=== PATIENT | male | born 1995 | race African-American/Black ===

== ENCOUNTER 2018-08-16 17:15 | Emergency (ER) | payer OTHER ==
[~2018-08-16] VITALS: Ht 182.9 cm; Wt 70.3 kg
== END 2018-08-16 20:15 | disposition home or self-care (01) ==
LOC: ER 17:15
DX: S60.052A Contusion of left little finger without damage to nail, initial encounter (principal); W22.8XXA Striking against or struck by other objects, initial encounter; Y93.67 Activity, basketball; Y92.89 Other specified places as the place of occurrence of the external cause; Y99.8 Other external cause status

== ENCOUNTER 2021-10-08 21:32 | Emergency (ER) | payer OTHER ==
[~2021-10-08] VITALS: Ht 182.9 cm; Wt 72.6 kg
[2021-10-09] MEDS ORDERED: MOBIC15 MG PO (01:08)
[2021-10-09] MEDS ORDERED: PEPCID40 MG PO (01:08)
== END 2021-10-09 01:17 ==
LOC: ER 21:32
DX: S29.8XXA Other specified injuries of thorax, initial encounter (principal); R10.13 Epigastric pain; Y92.019 Unspecified place in single-family (private) house as the place of occurrence of the external cause; X58.XXXA Exposure to other specified factors, initial encounter